=== PATIENT | male | born 1960 | race Caucasian/White ===

== ENCOUNTER 2017-11-27 07:42 | Emergency (ER) | payer OTHER ==
[~2017-11-27] VITALS: Ht 180.3 cm; Wt 78.0 kg
[~2017-11-27 07:42] MED LIST: AVAPRO300 MG
[2017-11-27] MEDS ORDERED: XANAX0.25 MG PO (13:12)
== END 2017-11-27 13:23 | disposition home or self-care (01) ==
LOC: ER 07:42
DX: R53.1 Weakness (principal); R53.81 Other malaise; F06.4 Anxiety disorder due to known physiological condition

== ENCOUNTER 2019-01-25 09:12 | Outpatient (CLI) | payer OTHER ==
[~2019-01-25 09:12] MED LIST changes: +XANAX0.25 MG PO
== END 2019-01-25 09:15 | disposition home or self-care (01) ==
LOC: MRI 09:12
DX: R41.3 Other amnesia (principal); D49.6 Neoplasm of unspecified behavior of brain; G40.909 Epilepsy, unspecified, not intractable, without status epilepticus
CPT/HCPCS: 70553

== ENCOUNTER 2019-10-02 09:01 | Emergency (ER) | payer OTHER ==
[~2019-10-02] VITALS: Ht 180.3 cm; Wt 77.1 kg
[2019-10-02] MEDS ORDERED: PAXIL40 MG PO (09:19)
[2019-10-02] MEDS ORDERED: ATIVAN2 M1 PO (09:20)
[2019-10-02] MEDS ORDERED: METFORMIN HCL500 M3 (09:20)
[2019-10-02] MEDS ORDERED: NASAL MIST126 ML (09:20)
[2019-10-02] MEDS ORDERED: ZITHROMAX500 MG PO (13:14)
== END 2019-10-02 13:30 | disposition home or self-care (01) ==
LOC: ER 09:01
DX: B34.9 Viral infection, unspecified (principal); B96.0 Mycoplasma pneumoniae [M. pneumoniae] as the cause of diseases classified elsewhere

== ENCOUNTER 2020-09-30 09:52 | Emergency (ER) | payer OTHER ==
[~2020-09-30] VITALS: Ht 180.3 cm; Wt 773.4 kg
[~2020-09-30 09:52] MED LIST changes: +ATIVAN2 M1 PO; +METFORMIN HCL500 M3; +NASAL MIST126 ML; +PAXIL40 MG PO; +ZITHROMAX500 MG PO
[2020-09-30] MEDS ORDERED: ONDANSETRON ODT4 MG PO (13:48)
[2020-09-30] MEDS ORDERED: PEPCID AC20 MG PO (13:48)
[2020-09-30] MEDS ORDERED: CELEBREX100 MG PO (13:48)
== END 2020-09-30 13:51 | disposition home or self-care (01) ==
LOC: ER 09:52
DX: B34.9 Viral infection, unspecified (principal); E86.0 Dehydration; K29.70 Gastritis, unspecified, without bleeding; Z11.52 Encounter for screening for COVID-19

== ENCOUNTER 2021-01-04 10:02 | Emergency (ER) | payer OTHER ==
[~2021-01-04] VITALS: Ht 180.3 cm; Wt 79.4 kg
[~2021-01-04 10:02] MED LIST changes: +CELEBREX100 MG PO; +ONDANSETRON ODT4 MG PO; +PEPCID AC20 MG PO
[2021-01-04] MEDS ORDERED: PAXIL20 MG PO (10:16)
[2021-01-04] MEDS ORDERED: ATIVAN4 MG/1 ML IJ (10:16)
== END 2021-01-04 11:12 | disposition home or self-care (01) ==
LOC: ER 10:02
DX: H92.01 Otalgia, right ear (principal)

== ENCOUNTER 2021-04-30 08:00 | Outpatient (CLI) | payer OTHER ==
[~2021-04-30 08:00] MED LIST changes: +ATIVAN4 MG/1 ML IJ; +PAXIL20 MG PO
== END 2021-04-30 08:40 | disposition home or self-care (01) ==
LOC: PPH VACUNA 08:00
PROVIDERS: ATTEND Emergency Medicine Pediatric Emergency Medicine
DX: Z23 Encounter for immunization (principal)